=== PATIENT | male | born 1945 | race Native Hawaiian/Other Pacific Islander ===

== ENCOUNTER → 2020-11-08 | Emergency (ER) | payer OTHER ==
[~2020-11-08] VITALS: Ht 190.5 cm; Wt 103.9 kg
[~2020-11-08] MED LIST: ACID CONTROL10 MG PO; ALBUTEROL108 MCG/AC INH; ASPIRIN 81 LOW81 MG PO; BUDE1AER5 INH; D325 MCG PO; DRIZALMA SPRINK40 MG PO; FERRETTS325 MG PO; FURO20TA67 PO; GLUCAGON1 M1 IM; HYDR10TA47 PO; JANTOVEN4 MG PO; JANTOVEN5 MG PO; LIPITOR20 MG PO; LOPERAMIDE2 MG PO; METO50TA63 PO; REXULTI3 MG PO; ROPINIROLE0.5 MG PO; TRAZODONE HYDRO50 MG PO; XALATAN0.005 % IO
[2020-11-08 11:55] VITALS: TEMP 98
[2020-11-08 12:37] LABS: PLATELET COUNT 219 K/uL (142-355)
[2020-11-08 13:50] VITALS: BP 128/62
== END ==
LOC: ED 11:55
PROVIDERS: Family Medicine
DX: R45.851 Suicidal ideations (principal); F32.89 Other specified depressive episodes; Z11.52 Encounter for screening for COVID-19; Z04.6 Encounter for general psychiatric examination, requested by authority
CPT/HCPCS: 80053; 85027; 87635; 93005; 99283; U0003

== ENCOUNTER → 2020-11-12 | Emergency (ER) | payer OTHER ==
[~2020-11-12] VITALS: Ht 188 cm; Wt 101.6 kg
[2020-11-12 06:26] VITALS: TEMP 96.8
[2020-11-12 07:21] VITALS: BP 136/74
== END ==
LOC: ED 06:26
DX: S61.411A Laceration without foreign body of right hand, initial encounter (principal); X58.XXXA Exposure to other specified factors, initial encounter; Y92.238 Other place in hospital as the place of occurrence of the external cause
CPT/HCPCS: 90715; 99282

== ENCOUNTER 2021-08-30 13:39 | Inpatient (IN) | payer OTHER ==
[2021-08-30] VITALS (8 sets, daily range): BP systolic 96–164; BP diastolic 41–90; TEMP 10.6; Ht 190.5 cm; Wt 90.3 kg
[~2021-08-30] VITALS: Ht 190.5 cm; Wt 90.3 kg
[~2021-08-30 13:39] MED LIST changes: +904272561 PO; +APIX1TAB PO; +ARIPIPRAZOLE10 MG PO; +DOCU100C10 PO; +DULO30CA PO; -FERRETTS325 MG PO; +FERROUS SULF325 MG PO; +MULTI VITAMIN1 TAB PO; +TRAZ50TA36 PO; -XALATAN0.005 % IO; +XALATAN0.005 % OPTH
[2021-08-30 14:51] LABS: PLATELET COUNT 254 K/uL (142-355)
[2021-08-30 15:02] LABS: POTASSIUM 4.2 mmol/L (3.6-5.2)
[2021-08-31] VITALS (11 sets, daily range): BP systolic 100–147; BP diastolic 40–96; TEMP 97.8–98.6
[2021-08-31 04:53] LABS: PLATELET COUNT 210 K/uL (142-355)
[2021-08-31] MEDS ORDERED: ARIPIPRAZOLE5 MG PO (08:12)
[2021-08-31] MEDS ORDERED: DULOXETINE HYDR60 MG PO (08:14)
[2021-08-31] MEDS ORDERED: TRAZODONE HYDRO50 MG PO (08:15)
[2021-09-01] VITALS: BP 145/85; TEMP 99.8
[2021-09-01 04:00] VITALS: BP 149/46; TEMP 98.5
[2021-09-01 05:34] LABS: POTASSIUM 4.6 mmol/L (3.6-5.2)
[2021-09-01 05:52] LABS: PLATELET COUNT 231 K/uL (142-355)
[2021-09-01 07:19] VITALS: BP 137/41; TEMP 99.4
[2021-09-01 11:33] VITALS: BP 153/61; TEMP 98.6
[2021-09-01] MEDS ORDERED: DIGITEK0.125 MG PO (14:08)
[2021-09-01] MEDS ORDERED: AZIT250T3 PO (14:09)
[2021-09-01] MEDS ORDERED: ALBUSOL INH (14:13)
== END 2021-09-01 17:10 | DRG 194 ==
LOC: MED/SURG 13:39 → PCU 08-31 09:54 → MED/SURG 08-31 18:07
PROVIDERS: ADMIT Internal Medicine; ATTEND Internal Medicine
DX: J18.8 Other pneumonia, unspecified organism (principal); N39.0 Urinary tract infection, site not specified; J44.0 Chronic obstructive pulmonary disease with (acute) lower respiratory infection; F33.2 Major depressive disorder, recurrent severe without psychotic features; R00.0 Tachycardia, unspecified; Z95.0 Presence of cardiac pacemaker; E11.9 Type 2 diabetes mellitus without complications; E55.9 Vitamin D deficiency, unspecified; E61.1 Iron deficiency; I48.91 Unspecified atrial fibrillation; I11.9 Hypertensive heart disease without heart failure
CPT/HCPCS: 36415; 80053; 80162; 81000; 83880; 85027; 87040; 87088; 87635; 93005; 94664; 94760; J0132; J0456; J0696; J1160; J1650; J2060; U0003